=== PATIENT | male | born 1935 | race Caucasian/White ===

== ENCOUNTER 2022-02-12 14:58 | Inpatient (IN) | payer MEDICARE, OTHER ==
[2022-02-12] MEDS ORDERED: Metoclopramide 10 MG/2 ML SDV IVPUSH ONE (15:44)
[2022-02-12] MEDS ORDERED: Dextrose 5%-0.9% NaCl 1,000 ML IV SCH (15:45)
[2022-02-12] MEDS ORDERED: Hydrocortisone Sodium Succinate 100 MG/2 ML SDV IVPUSH ONE (18:17)
[2022-02-12] MEDS ORDERED: Lactated Ringers 1,000 ML IV SCH (18:30)
[2022-02-12 19:24] LABS: CORONAVIRUS COVID-19 NAA NEGATIVE (NEGATIVE)
[2022-02-12] MEDS ORDERED: Sodium Chloride 0.9% 10 ML Syringe FLUSH PRN (19:26)
[2022-02-12] MEDS ORDERED: Ondansetron 4 MG/2 ML SDV IV PRN (20:44)
[2022-02-12] MEDS ORDERED: Pantoprazole 40 MG Vial ONE (20:44)
[2022-02-12] MEDS: Dexamethasone 4 MG/ML 5 ML MDV IV SCH (21:25)
[2022-02-12] MEDS: Dextrose 5%-0.45% NaCl 1,000 ML IV SCH (21:27)
[2022-02-13] MEDS: Dexamethasone 4 MG/ML 5 ML MDV IV SCH ×2 (02:29→09:00)
[2022-02-13] MEDS: Dextrose 5%-0.45% NaCl 1,000 ML IV SCH (05:50)
[2022-02-13] MEDS ORDERED: Dextrose 5%-0.45% NaCl 1,000 ML IV SCH (10:00)
== END 2022-02-13 14:36 | disposition home or self-care (01) | DRG 394 ==
LOC: JD.ED 14:58 → JD.MS 19:27
PROVIDERS: ADMIT Pediatrics; ATTEND Pediatrics
DX: K91.89 Other postprocedural complications and disorders of digestive system (principal); C71.9 Malignant neoplasm of brain, unspecified; R11.2 Nausea with vomiting, unspecified; Z91.048 Other nonmedicinal substance allergy status; E86.9 Volume depletion, unspecified; Z79.52 Long term (current) use of systemic steroids; I10 Essential (primary) hypertension; N40.0 Benign prostatic hyperplasia without lower urinary tract symptoms; K21.9 Gastro-esophageal reflux disease without esophagitis; H54.7 Unspecified visual loss; Z98.890 Other specified postprocedural states; H91.90 Unspecified hearing loss, unspecified ear; Z20.822 Contact with and (suspected) exposure to COVID-19; J44.9 Chronic obstructive pulmonary disease, unspecified; M19.90 Unspecified osteoarthritis, unspecified site; Z96.649 Presence of unspecified artificial hip joint; G93.89 Other specified disorders of brain; I50.9 Heart failure, unspecified; I11.0 Hypertensive heart disease with heart failure; T38.0X5A Adverse effect of glucocorticoids and synthetic analogues, initial encounter; Z85.038 Personal history of other malignant neoplasm of large intestine; Z79.82 Long term (current) use of aspirin; Z79.899 Other long term (current) drug therapy; Z87.442 Personal history of urinary calculi; Z90.49 Acquired absence of other specified parts of digestive tract; Z87.891 Personal history of nicotine dependence; Z88.1 Allergy status to other antibiotic agents; Z88.5 Allergy status to narcotic agent
CPT/HCPCS: 0241U; 36415; 70450; 71045; 80053; 81001; 83735; 83880; 84484; 85025; 85610; 85652; 85730; 86140; 87040; 87641; 93005; 93010; 96374; 96375; 99285; 99285-25; C9113; J1100; J1720; J2765; J7042; J7120

== ENCOUNTER 2022-03-11 10:36 | Inpatient (IN) | payer MEDICARE, OTHER ==
[2022-03-11] MEDS ORDERED: Sodium Chloride 0.9% 10 ML Syringe FLUSH PRN (10:47)
[2022-03-11] MEDS ORDERED: Sodium Chloride 0.9% 1,000 ML IV ONE (10:47)
[2022-03-11] MEDS ORDERED: Sodium Chloride 0.9% 10 ML Syringe FLUSH ONE (13:11)
[2022-03-11] MEDS ORDERED: Gadobenate Dimeglumine 529 MG/ML 15 ML SDV IVPUSH ONE (13:15)
[2022-03-11] MEDS ORDERED: Ondansetron 4 MG/2 ML SDV IV PRN (21:55)
[2022-03-11] MEDS ORDERED: Cetirizine 10 MG Tab PO PRN (22:44)
[2022-03-11] MEDS ORDERED: hydrALAZINE 20 MG/ML SDV IVPUSH PRN (22:45)
[2022-03-12] MEDS ORDERED: traZODone 50 MG Tab PO ONE (00:20)
[2022-03-12] MEDS: Heparin Sodium 5,000 Units/ML Vial SUBCUT SCH ×3 (00:51→23:00)
[2022-03-12] MEDS: Aspirin 81 MG Tab.Chew PO SCH (08:10)
[2022-03-12] MEDS: Verapamil 120 MG Cap.ER PO SCH (08:10)
[2022-03-12] MEDS: Thiamine 100 MG Tab PO SCH (08:10)
[2022-03-12] MEDS: Cyanocobalamin (Vitamin B12) 1,000 MCG Tab PO SCH (08:10)
[2022-03-12] MEDS ORDERED: Sennosides 8.6 MG Tab PO PRN (19:45)
[2022-03-12] MEDS ORDERED: Docusate Sodium 100 MG Cap PO PRN (19:46)
[2022-03-12] MEDS ORDERED: diphenhydrAMINE 25 MG Cap PO ONE (19:47)
[2022-03-12] MEDS: Terazosin 5 MG Cap PO SCH (20:30)
[2022-03-12] MEDS: Polyethylene Glycol 3350 Powder 17 GM Packet PO PRN (20:30)
[2022-03-12] MEDS: TEMOZOLOMIDE 140 MG PO SCH (20:33)
[2022-03-12] MEDS: Melatonin 3 MG Tab PO SCH (20:33)
[2022-03-13] MEDS ORDERED: OLANZapine 5 MG Tab PO PRN (08:22)
[2022-03-13] MEDS ORDERED: OLANZapine 10 MG Vial IM PRN (08:22)
[2022-03-13] MEDS: Cyanocobalamin (Vitamin B12) 1,000 MCG Tab PO SCH (09:33)
[2022-03-13] MEDS: Aspirin 81 MG Tab.Chew PO SCH (09:33)
[2022-03-13] MEDS: Verapamil 120 MG Cap.ER PO SCH (09:34)
[2022-03-13] MEDS: Thiamine 100 MG Tab PO SCH (09:34)
[2022-03-13] MEDS: Polyethylene Glycol 3350 Powder 17 GM Packet PO PRN (09:39)
[2022-03-13] MEDS: Heparin Sodium 5,000 Units/ML Vial SUBCUT SCH ×2 (11:30→22:42)
[2022-03-13] MEDS ORDERED: Potassium Chloride 20 MEQ Tab.ER PO ONE (11:42)
[2022-03-13] MEDS: Bisacodyl 10 MG Supp RECTAL PRN (11:52)
[2022-03-13] MEDS: Acetaminophen 325 MG Tab PO PRN (20:05)
[2022-03-13] MEDS: Melatonin 3 MG Tab PO SCH (20:06)
[2022-03-13] MEDS: Terazosin 5 MG Cap PO SCH (20:07)
[2022-03-13] MEDS ORDERED: Ondansetron 4 MG Tab.DIS PO PRN (20:11)
[2022-03-13] MEDS: TEMOZOLOMIDE 140 MG PO SCH (20:49)
[2022-03-14] MEDS: Bisacodyl 10 MG Supp RECTAL PRN (05:20)
[2022-03-14] MEDS: Thiamine 100 MG Tab PO SCH (08:53)
[2022-03-14] MEDS: Verapamil 120 MG Cap.ER PO SCH (08:54)
[2022-03-14] MEDS: Aspirin 81 MG Tab.Chew PO SCH (08:54)
[2022-03-14] MEDS: oxyCODONE 5 MG Tab PO PRN (08:55)
[2022-03-14] MEDS: Cyanocobalamin (Vitamin B12) 1,000 MCG Tab PO SCH (09:02)
[2022-03-14] MEDS: Heparin Sodium 5,000 Units/ML Vial SUBCUT SCH ×2 (11:36→23:17)
[2022-03-14] MEDS: Acetaminophen 325 MG Tab PO PRN ×2 (15:05→21:15)
[2022-03-14] MEDS: Terazosin 5 MG Cap PO SCH (21:14)
[2022-03-14] MEDS: Melatonin 3 MG Tab PO SCH (21:17)
[2022-03-15] MEDS: oxyCODONE 5 MG Tab PO PRN (04:22)
[2022-03-15] MEDS ORDERED: HYDROmorphone 1 MG/ML Syringe IVPUSH ONE (05:03)
[2022-03-15] MEDS ORDERED: HYDROmorphone 1 MG/ML Syringe ONE (05:37)
[2022-03-15] MEDS ORDERED: Iopamidol 612 MG/ML 100 ML Bottle IVPUSH ONE (06:15)
[2022-03-15] MEDS ORDERED: Naloxone 0.4 MG/ML SDV IVPUSH ONE (07:48)
[2022-03-15] MEDS: Verapamil 120 MG Cap.ER PO SCH (10:00)
[2022-03-15] MEDS ORDERED: Tamsulosin 0.4 MG Cap.ER PO ONE (10:34)
[2022-03-15] MEDS ORDERED: Lactated Ringers 1,000 ML IV ONE (12:00)
[2022-03-15] MEDS: Aspirin 81 MG Tab.Chew PO SCH (12:02)
[2022-03-15] MEDS: Heparin Sodium 5,000 Units/ML Vial SUBCUT SCH (12:02)
[2022-03-15] MEDS: Cyanocobalamin (Vitamin B12) 1,000 MCG Tab PO SCH (12:02)
[2022-03-15] MEDS: Thiamine 100 MG Tab PO SCH (12:02)
[2022-03-15] MEDS: Terazosin 5 MG Cap PO SCH (20:26)
[2022-03-15] MEDS: Melatonin 3 MG Tab PO SCH (20:26)
[2022-03-16] MEDS: Heparin Sodium 5,000 Units/ML Vial SUBCUT SCH ×3 (00:10→22:52)
[2022-03-16] MEDS: Aspirin 81 MG Tab.Chew PO SCH (08:47)
[2022-03-16] MEDS: Verapamil 120 MG Cap.ER PO SCH (08:47)
[2022-03-16] MEDS: Cyanocobalamin (Vitamin B12) 1,000 MCG Tab PO SCH (08:47)
[2022-03-16] MEDS: Thiamine 100 MG Tab PO SCH (08:48)
[2022-03-16] MEDS: Tamsulosin 0.4 MG Cap.ER PO SCH (10:06)
[2022-03-16] MEDS: cefTRIAXone 1 GM in Sodium Chloride 0.9% 100 ML IV SCH (12:36)
[2022-03-16] MEDS: Acetaminophen/Codeine 300-30 MG Tab PO PRN ×2 (18:53→22:54)
[2022-03-16] MEDS: Terazosin 5 MG Cap PO SCH (20:14)
[2022-03-16] MEDS: Melatonin 3 MG Tab PO SCH (20:14)
[2022-03-17] MEDS: Cyanocobalamin (Vitamin B12) 1,000 MCG Tab PO SCH (08:32)
[2022-03-17] MEDS: Acetaminophen/Codeine 300-30 MG Tab PO PRN (08:32)
[2022-03-17] MEDS: Verapamil 120 MG Cap.ER PO SCH (08:32)
[2022-03-17] MEDS: Aspirin 81 MG Tab.Chew PO SCH (08:33)
[2022-03-17] MEDS: Thiamine 100 MG Tab PO SCH (08:33)
[2022-03-17] MEDS: Tamsulosin 0.4 MG Cap.ER PO SCH (08:33)
[2022-03-17] MEDS ORDERED: HYDROmorphone 0.5 MG/0.5 ML Syringe IVPUSH ONE (11:40)
[2022-03-17] MEDS ORDERED: Sodium Chloride 0.9% 1,000 ML IV ONE (11:45)
[2022-03-17] MEDS ORDERED: oxyCODONE 5 MG Tab PO PRN (11:45)
[2022-03-17] MEDS ORDERED: HYDROmorphone 0.5 MG/0.5 ML Syringe SUBCUT PRN (11:46)
[2022-03-17] MEDS: Heparin Sodium 5,000 Units/ML Vial SUBCUT SCH (11:59)
[2022-03-17] MEDS: cefTRIAXone 1 GM in Sodium Chloride 0.9% 100 ML IV SCH (11:59)
== END 2022-03-17 18:30 | DRG 690 ==
LOC: JD.ED 10:36 → INTOOBSV 19:49 → JD.MS 19:49 → OBSVTOIN 03-14 09:01
PROVIDERS: ADMIT Hospitalist; ATTEND Hospitalist
DX: N13.6 Pyonephrosis (principal); I13.0 Hypertensive heart and chronic kidney disease with heart failure and stage 1 through stage 4 chronic kidney disease, or unspecified chronic kidney disease; R53.1 Weakness; Z66 Do not resuscitate; D32.0 Benign neoplasm of cerebral meninges; I50.9 Heart failure, unspecified; R41.0 Disorientation, unspecified; E87.6 Hypokalemia; Z51.5 Encounter for palliative care; N18.30 Chronic kidney disease, stage 3 unspecified; G89.4 Chronic pain syndrome; N40.0 Benign prostatic hyperplasia without lower urinary tract symptoms; R45.1 Restlessness and agitation; M19.90 Unspecified osteoarthritis, unspecified site; N21.0 Calculus in bladder; Z96.649 Presence of unspecified artificial hip joint; J44.9 Chronic obstructive pulmonary disease, unspecified; Z90.49 Acquired absence of other specified parts of digestive tract; Z88.1 Allergy status to other antibiotic agents; Z88.8 Allergy status to other drugs, medicaments and biological substances; Z79.82 Long term (current) use of aspirin; Z79.899 Other long term (current) drug therapy; Z87.891 Personal history of nicotine dependence
CPT/HCPCS: 36415; 51701; 51702; 51703; 51798; 70450; 70450-26; 70553; 70553-26; 71045; 71045-26; 72192; 72192-26; 73560-26-LT; 73560-LT; 74018; 74018-26; 74177; 74177-26; 80048; 80053; 81001; 81003; 82803; 83605; 83735; 85007; 85027; 85379; 87086; 96374; 97110-GP; 97162-GP; 97530-GP; 99218; 99225; 99231; 99239; 99285; 99285-25; A9270-GY; A9577; J0696; J1170; J1644; J2310; J3490; J7030; J7120; Q9967